=== PATIENT | female | born 1990 | race Caucasian/White ===

== ENCOUNTER 2019-11-25 15:22 | Outpatient (CLI) | payer MEDICAID, SELFPAY ==
--- NOTE | 2019-11-25 15:38 | ECG_ITS ---
Measurements Intervals [place] Rate: 69 P: 40 NC: 144 QRS: 6 QRSD: 97 T: 27 QT: 418 QTc: 449 Interpretive Statements SINUS RHYTHM INCOMPLETE RIGHT BUNDLE BRANCH BLOCK DELAYED PRECORDIAL R/S TRANSITION LOW QRS VOLTAGE IN PRECORDIAL LEADS BORDERLINE ST ABNORMALITY- INFERIOR LEADS BORDERLINE ECG Electronically Signed On 11-25-2019 16:41:27 CDT by Justice Marcos D.O.
--- NOTE | 2019-12-01 11:49 | WPDHOLTEREM ---
Holter/Event Monitor Holter/Event Monitor Date of procedure: 11/25/19 Procedure Type: 24 hour holter monitor Indications: Palpitations Conclusion: 1. 24 hour holter monitor on 11/25/19. 2. Underlying rhythm is sinus rhythm. HR range 47-120 bpm; average HR 75 bpm. 3. There are 16 premature supraventricular complexes. No supraventricular tachycardia. 4. There are 688 premature ventricular complexes and 57 ventricular trigeminy. No ventricular tachycardia. 5. No sinoatrial or atrioventricular blocks. No significant pauses greater than 2 seconds. 6. Patient reports chest pains twice which demonstrate sinus rhythm, HR range 85-92 bpm.
== END 2019-11-25 15:23 | disposition home or self-care (01) ==
LOC: ANHCARD 15:23
PROVIDERS: Visit Provider Obstetrics & Gynecology
DX: R00.2 Palpitations (principal); I49.3 Ventricular premature depolarization; R07.9 Chest pain, unspecified; I45.10 Unspecified right bundle-branch block
CPT/HCPCS: 93005; 93225; 93226

== ENCOUNTER 2020-01-01 09:24 | Outpatient (CLI) | payer BC, SELFPAY ==
[2020-01-01 09:44] LABS: Basophils Absolute Auto 0.1 K/mm3 (0.0-0.1); Basophils Percent Auto 0.6 % (0.2-1.2); Eosinophils Absolute Auto 0.2 K/mm3 (0-0.3); Eosinophils Percent Auto 1.5 % (0-4.4); Hematocrit 31.7 % (37.0-47.0); Hemoglobin 10.7 g/dL (12.0-15.0); Immature Granulocyte Absolute 0.16 K/mm3 (0.00-0.031); Immature Granulocyte Percent A 1.5 % (0-0.5); Lymphocytes Absolute Auto 2.89 K/mm3 (0.9-3.2); Lymphocytes Percent Auto 26.6 % (18.3-44.2); Mean Corpuscular HGB Conc 33.8 g/dl (32-36); Mean Corpuscular Hemoglobin 30.7 pg (26-34); Mean Corpuscular Volume 90.8 fl (80-100); Monocytes Absolute Auto 0.6 K/mm3 (0.1-0.6); Monocytes Percent Auto 5.1 % (2.6-8.5); Neutrophils Absolute Auto 7.1 K/mm3 (1.3-6.7); Neutrophils Percent Auto 64.7 % (45.5-73.1); Platelet Count Result 210 k/mm3 (150-375); Red Blood Count 3.49 M/mm3 (4.2-5.4); Red Cell Distribution Width 12.7 % (11.5-14.5); White Blood Count 10.9 K/mm3 (4.5-10.0)
[2020-01-01 09:59] LABS: Alanine Aminotransferase 13 U/L (4-35); Albumin Level 3.7 g/dL (3.5-5.1); Alkaline Phosphatase 62 U/L (38-126); Anion Gap 4 mmol/L (8-16); Aspartate Amino Transferase 24 U/L (14-36); Bilirubin,Total 0.3 mg/dL (0.2-1.3); Blood Urea Nitrogen 7 mg/dL (7-17); Calcium 8.6 mg/dL (8.4-10.2); Carbon Dioxide 26 mmol/L (22-30); Chloride 106 mmol/L (98-107); Cholesterol 241 mg/dL (0-200); Estimated Glomerular Filt Rate > 60; Glucose 86 mg/dL (65-105); HDL Direct 85 mg/dL; Magnesium 1.8 mg/dL (1.6-2.3); Sodium 136 mmol/L (137-145); Triglycerides 126 mg/dL (<150)
[2020-01-01 10:10] LABS: LDL Cholesterol Direct 140 mg/dL
== END 2020-01-01 09:25 | disposition home or self-care (01) ==
PROVIDERS: Visit Provider Internal Medicine Cardiovascular Disease
DX: R00.2 Palpitations (principal)
CPT/HCPCS: 36415; 80053; 80061; 83735; 84443; 85025

== ENCOUNTER 2020-02-09 09:04 | Outpatient (RCR) | payer BC, SELFPAY ==
[2020-02-09 10:39] LABS: Hematocrit 29.5 % (37.0-47.0); Hemoglobin 10.2 g/dL (12.0-15.0)
[2020-02-09 10:56] LABS: Glucose 1 Hour PP 50gm Dose 101 mg/dL
[2020-02-09 11:36] LABS: HIV 1/2 Ab P24 Ag Result Negative (Negative)
[2020-02-10] MEDS: RHO(D) IMMUNE GLOBULIN 300 MCG SYRINGE IM (10:00)
[2020-02-10 13:43] LABS: Rapid Plasma Reagin Non-Reactive (NonReactive)
== END 2020-05-09 23:59 | disposition home or self-care (01) ==
LOC: ANHLAB 09:04
PROVIDERS: Visit Provider Obstetrics & Gynecology
DX: Z29.13 Encounter for prophylactic Rho(D) immune globulin (principal); Z11.4 Encounter for screening for human immunodeficiency virus [HIV]; O36.0990 Maternal care for other rhesus isoimmunization, unspecified trimester, not applicable or unspecified; Z3A.00 Weeks of gestation of pregnancy not specified
CPT/HCPCS: 36415; 82947; 85014; 85018; 85461; 86592; 86703; 90384; 96372; G0432; J2790

== ENCOUNTER 2020-05-06 05:56 | Inpatient (IN) | payer OTHER, SELFPAY ==
[2020-05-06] VITALS (91 sets, daily range): BP systolic 76–136; BP diastolic 36–80; PULSE 45–157; RESP 16–18; TEMP 36–36.8; O2SAT 80–100; BMI 32.7
--- OUTSIDE RECORDS SUMMARY | 2020-05-06 06:03 | XMS_ITS | Encounter Summary ---
:1990 Author Reason for Visit OB visit Assessment and Plan Assessment Note Patient is ___weeks . Discu ssed plan. 1. Routine care Discussion Note: None recorded.Patient educational handouts: No information available. Plan of Care Reminders Provider Appointments None ? ? recorded. Lab None ? ? recorded. Referral None ? ? recorded. Procedures None ? ? recorded. Surgeries None ? ? recorded. Imaging None ? ? recorded. Medications Name Start Date ? ? sertraline 50 mg tablet ? TAKE 1 TABLET BY MOUTH EVERY DAY C.O.D. BILLER-PNV-DHA 28 mg iron-1 mg-200 mg capsule 11/09/2016 take 1 capsule by oral route every day Medications Administered None recorded. Vitals Height Weight BMI Blood Pressure 5 ft 5 in 198 lbs 32.9 kg/m2 108/68 mm[Hg] Results Lab Results None recorded. Allergies Code Code System Name Reaction Severity Onset NKDA ? ? ? Problems Name Status Onset Date Source ? Active 04/07/2020 ? Notes: Hermelinda from [employer] D ept 11/01 - States pt was previously positive for syphillis in 2015. Gingrich treated on 11/29/15, 12/06/2015,and
--- OUTSIDE RECORDS SUMMARY | 2020-05-06 06:03 | XMS_ITS | Encounter Summary ---
:1990 Author Reason for Visit OB visit OB [id number] EDC 04/30/2020 LMP 07/25/2019 Assessment and Plan Assessment Note Patient is _34__weeks . Dis cussed plan. 1. Routine care Additional precautionary measu res were taken to minimize potential exposure to the Covid-19 virus during this patien t?s visit, including available hand pipe supervisor upon arrive, temperature check and being asked a series of screening questions. All staff wore face coverings during this en counter, as well as provided additional cleaning and sanitizing of all surfaces, including countertops, pens, chairs, door handles, light switches, etc, prior to a nd following the patient?s visit.v 2. Low back pain in ? cyclobenzaprine 5 mg table t Discussion Note: None recorded.Patient educational handouts: No information available. Plan of Care Reminders Provider Appointments None ? ? recorded. Lab None ? ? recorded. Referral None ? ? recorded. Procedures None ? ? recorded. Surgeries None ? ? recorded. Imaging None ? ? recorded. Medications Name Start Date ? ? sertraline 50 mg tablet ? TAKE 1 TABLET BY MOUTH EVERY DAY AUTHORIZATION REP-PNV-DHA 28 mg iron-1 mg-200 mg capsule 11/09/2016 take 1 capsule by oral route every day
--- OUTSIDE RECORDS SUMMARY | 2020-05-06 06:03 | XMS_ITS | Encounter Summary ---
:1990 Author Reason for Visit None recorded. Assessment and Plan 1. Medical examination for suspe cted condition ? US, obstetric, limited Discussion Note: None recorded.Patient educational handouts: No information available. Plan of Care Reminders Provider Appointments None ? ? recorded. Lab None ? ? recorded. Referral None ? ? recorded. Procedures None ? ? recorded. Surgeries None ? ? recorded. Imaging US, [facility] 04/07/2020 Medications Name Start Date ? ? sertraline 50 mg tablet ? TAKE 1 TABLET BY MOUTH EVERY DAY LINER MAN-PNV-DHA 28 mg iron-1 mg-200 mg capsule 11/09/2016 take 1 capsule by oral route every day Medications Administered None recorded. Vitals None recorded. Results Lab Results None recorded. Allergies Code Code System Name Reaction Severity Onset NKDA ? ? ? Problems Name Status Onset Date Source ? Active 04/07/2020 ? Notes: Hermelinda from [employer] D ept 11/01 - States pt was previously positive for syphillis in 2015. Gingrich treated on 11/29/15, 12/06/2015,and 12/13/15. At that time she was RPR 1:4 ratio, TP-PA+. Retested in 2017 at delivery and RPR was 1:2 and No
--- OUTSIDE RECORDS SUMMARY | 2020-05-06 06:03 | XMS_ITS | Encounter Summary ---
:1990 Author Reason for Visit OB visit [id number] Assessment and Plan 1. Routine care Additional precautionary measu res were taken to minimize potential exposure to the Covid-19 virus during this patien t?s visit, including available hand ultrasound technologist upon arrive, temperature check and being asked a series of screening questions. All staff wore face coverings during this en counter, as well as provided additional cleaning and sanitizing of all surfaces, including countertops, pens, chairs, door handles, light switches, etc, prior to a nd following the patient?s visit. Discussion Note: None recorded.Patient educational handouts: No information available. Plan of Care Reminders Provider Appointments None ? ? recorded. Lab None ? ? recorded. Referral None ? ? recorded. Procedures None ? ? recorded. Surgeries None ? ? recorded. Imaging None ? ? recorded. Medications Name Start Date ? ? sertraline 50 mg tablet ? TAKE 1 TABLET BY MOUTH EVERY DAY REJECTED ITEMS CLERK-PNV-DHA 28 mg iron-1 mg-200 mg capsule 11/09/2016 take 1 capsule by oral route every day Medications Administered None recorded. Vitals Height Weight BMI Blood Pressure 5 ft 5 in 198 lbs 32.9 kg/m2 106/71 mm[Hg] Results Lab Results None
--- OUTSIDE RECORDS SUMMARY | 2020-05-06 06:03 | XMS_ITS | Encounter Summary ---
:1990 Author Reason for Visit OB visit [id number] Assessment and Plan 1. Routine care Discussion Note: None recorded.Patient [...] TAKE 1 TABLET BY MOUTH EVERY DAY BRAKE ADJUSTER-PNV-DHA 28 mg iron-1 mg-200 mg capsule 11/09/2016 take 1 capsule by oral route every day Medications Administered None recorded. Vitals Height Weight BMI Blood Pressure 5 ft 5 in 186 lbs 31 kg/m2 100/66 mm[Hg] Results Lab Results None recorded. Allergies Code Code System Name Reaction Severity Onset NKDA ? ? ? Problems Name Status Onset Date Source ? Active 04/07/2020 ? Notes: Hermelinda from [employer] D ept 11/01 - States pt was previously positive for syphillis in 2015. Gingrich treated on 11/29/15, 12/06/2015,and 12/13/15. At that time she was RPR 1:4 ratio, TP-PA+. Retested in 2017 at delivery a
--- OUTSIDE RECORDS SUMMARY | 2020-05-06 06:03 | XMS_ITS | Encounter Summary ---
:1990 Author Reason for Visit OB visit OB [id number] EDC 04/30/2020 LMP 07/25/2019 Assessment and Plan Assessment Note Patient is _39__weeks . Dis cussed plan. 1. Routine care Discussion Note: None [...] TAKE 1 TABLET BY MOUTH EVERY DAY ROD MACHINE OPERATOR-PNV-DHA 28 mg iron-1 mg-200 mg capsule 11/09/2016 take 1 capsule by oral route every day Medications Administered None recorded. Vitals Height Weight BMI Blood Pressure 5 ft 5 in 200 lbs 33.3 kg/m2 124/72 mm[Hg] Results Lab Results None recorded. Allergies Code Code System Name Reaction Severity Onset NKDA ? ? ? Problems Name Status Onset Date Source ? Active 04/07/2020 ? Notes: Hermelinda from [employer] D ept 11/01 - States pt was previou
--- OUTSIDE RECORDS SUMMARY | 2020-05-06 06:03 | XMS_ITS ---
:1990 Author Care Team Providers Name Role Phone Evelio Neal Primary Care Provider Unavailable Allergies Code Code System Name Reaction Severity Status Onset NKDA ? Medications Name Status Start Date Stop Date ? ? Bicillin L-A 2,400,000 unit/4 mL intramuscular syringe Completed 11/28/2015 04/25/2016 inject 4 milliliter by intramuscular route once cyclobenzaprine 10 mg tablet Completed ? Take 1 tablet 3 times a day by oral route. cyclobenzaprine 5 mg tablet Completed ? 03/21 Diflucan 100 mg tablet Completed 11/12/2016 0 take 2 tablet by oral route today then 1 tab for the next 10 d ays Diflucan 150 mg tablet Completed 11/09/2016 7 take 2 tablet by oral route once today then 1 tabblet for the n ext 10 days Flagyl 500 mg tablet Completed 07/06/2016 11/09/2016 take 1 tablet by oral route 2 times every day Metrogel Vaginal 0.75 % Completed 11/14/2016 02/09/20 20 insert 1 applicatorful by vaginal route every day at bedtime f or 5 nights Completed ? 02/09/2020 sertraline 50 mg tablet Active ? Not avai lable TAKE 1 TABLET BY MOUTH EVERY DAY PAINTING AND COATING WORKER-PNV-DHA 28 mg iron-1 mg-200 mg capsule Active 2016 Not available take 1 capsule by oral route every day Problems Name Status Onset Date Source ? Amenorrhea Unknown 10/27/2015 History Detection Examination Unknown 10/27/[address] Concept Unknown 10/27/2015 History Gestation Period, 13 Weeks Unknown 11/29/2015 Histo ry , Childbirth and [place] Unknown 11/29/2015 Hi
--- OUTSIDE RECORDS SUMMARY | 2020-05-06 06:03 | XMS_ITS | Encounter Summary ---
:1990 Author Reason for Visit OB visit OB [id number] EDC 04/30/2020 LMP 07/25/2019 Assessment and Plan Assessment Note Patient is _37__weeks . Dis cussed plan. 1. Routine care Additional precautionary measu res were taken to minimize potential exposure to the Covid-19 virus during this patien t?s visit, including available hand student dean upon arrive, temperature check and being asked a series of screening questions. All staff wore face coverings during this en counter, as well as provided additional cleaning and sanitizing of all surfaces, including countertops, pens, chairs, door handles, light switches, etc, prior to a nd following the patient?s visit. 2. Mixed anxiety and depressive disorder ? Zoloft 50 mg tablet Discussion Note: None recorded.Patient educational handouts: No information available. Plan of Care Reminders Provider Appointments None ? ? recorded. Lab None ? ? recorded. Referral None ? ? recorded. Procedures None ? ? recorded. Surgeries None ? ? recorded. Imaging None ? ? recorded. Medications Name Start Date ? ? sertraline 50 mg tablet ? TAKE 1 TABLET BY MOUTH EVERY DAY OPHTHALMIC TECHNOLOGIST-PNV-DHA 28 mg iron-1 mg-200 mg capsule 11/09/2016 take 1 capsule by oral route every day
--- OUTSIDE RECORDS SUMMARY | 2020-05-06 06:03 | XMS_ITS | Encounter Summary ---
:1990 Author Reason for Visit OB visit Assessment and Plan 1. Routine care Discussion [...] TAKE 1 TABLET BY MOUTH EVERY DAY QUALITY COORDINATOR-PNV-DHA 28 mg iron-1 mg-200 mg capsule 11/09/2016 take 1 capsule by oral route every day Medications Administered None recorded. Vitals Height Weight BMI Blood Pressure 5 ft 5 in 187 lbs 31.1 kg/m2 105/66 mm[Hg] Results Lab Results None recorded. Allergies Code Code System Name Reaction Severity Onset NKDA ? ? ? Problems Name Status Onset Date Source ? Active 04/07/2020 ? Notes: Hermelinda from [employer] D ept 11/01 - States pt was previously positive for syphillis in 2015. Gingrich treated on 11/29/15, 12/06/2015,and 12/13/15. At that time she was RPR 1:4 ratio, TP-PA+. Retested in 2017 at delivery and RPR was 1:2 and Nonreactive which means the esperanza
--- OUTSIDE RECORDS SUMMARY | 2020-05-06 06:03 | XMS_ITS | Encounter Summary ---
:1990 Author Reason for Visit OB visit OB [id number] EDC 04/30/2020 LMP 07/25/2019 Assessment and Plan Assessment Note Patient is _40__weeks . Dis cussed plan. 1. Routine care [...] TAKE 1 TABLET BY MOUTH EVERY DAY MEAL ATTENDANT-PNV-DHA 28 mg iron-1 mg-200 mg capsule 11/09/2016 take 1 capsule by oral route every day Medications Administered None recorded. Vitals Height Weight BMI Blood Pressure 5 ft 5 in 202 lbs 33.6 kg/m2 131/79 mm[Hg] Results Lab Results None recorded. Allergies Code Code System Name Reaction Severity Onset NKDA ? ? ? Problems Name Status Onset Date Source ? Active 04/07/2020 ? Notes: Hermelinda from [employer] D ept 11/01 - States pt was previ
[2020-05-06 06:43] LABS: Basophils Absolute Auto 0.1 K/mm3 (0.0-0.1); Basophils Percent Auto 0.4 % (0.2-1.2); Eosinophils Absolute Auto 0.2 K/mm3 (0-0.3); Eosinophils Percent Auto 1.1 % (0-4.4); Hematocrit 35.4 % (37.0-47.0); Hemoglobin 11.9 g/dL (12.0-15.0); Immature Granulocyte Absolute 0.21 K/mm3 (0.00-0.031); Immature Granulocyte Percent A 1.5 % (0-0.5); Lymphocytes Absolute Auto 4.43 K/mm3 (0.9-3.2); Lymphocytes Percent Auto 31.6 % (18.3-44.2); Mean Corpuscular HGB Conc 33.6 g/dl (32-36); Mean Corpuscular Hemoglobin 30.4 pg (26-34); Mean Corpuscular Volume 90.5 fl (80-100); Mean Platelet Volume 10.7 fl (7.4-10.4); Monocytes Absolute Auto 0.9 K/mm3 (0.1-0.6); Monocytes Percent Auto 6.2 % (2.6-8.5); Neutrophils Absolute Auto 8.3 K/mm3 (1.3-6.7); Neutrophils Percent Auto 59.2 % (45.5-73.1); Platelet Count Result 272 k/mm3 (150-375); Red Blood Count 3.91 M/mm3 (4.2-5.4); Red Cell Distribution Width 13.1 % (11.5-14.5)
[2020-05-06] MEDS: LACTATED RINGERS 1,000 ML 125 ML IV CONT ×2 (06:46→09:04)
[2020-05-06] MEDS: OXYTOCIN 30 UNITS/NS 500 ML 30 UNITS/500 ML BAG IV CONT (06:47)
--- NOTE | 2020-05-06 06:57 | LDADM ---
This patient, Tamara Gomes, was admitted to Labor/Delivery/Recovery 106 on 05/06/20 at 05:56. Plans for labor, pain management and were discussed with patient. Patient/family oriented to hospital policies and general routines including ID bracelet, bed and alarms, visiting hours, pain management, procedures, bathroom and other care routines, personal items, smoking policy, room service/diet and guest tray routines, security routines, and visiting hours. Patient/Family are encouraged to report perceived risks to care and to ask questions if they do not understand what they are told or what they should do. See OBIX for further documentation.
--- NOTE | 2020-05-06 07:56 | WPDOBADMIT ---
Obstetrics - Admit Note Admission Note: record reviewed. No pertinent additions to the history and/or any subsequent changes in the physical findings that are not consistent with the expected course of the were found. MIL for postdates, attempted AROM /-2, no fluid, pitocin started Additions to the history and/or subsequent changes in the physical findings follow. None.
--- NOTE | 2020-05-06 09:04 | P.PNAN_ITS ---
Anes - Eval Pre Procedure Date/Time: 05/06/20 09:04 Pre Op Diagnosis: Induction of Labor Patient Data Age: 30 Gender: F Height: 1.68 m Weight: 92 kg Last Vital Signs Temp 36.8 C 05/06/20 07:30 Pulse 56 L 05/06/20 08:45 BP 122/77 05/06/20 08:45 Allergies Allergy/AdvReac Type Severity Reaction Status Date / Time No Known Allergies Allergy Unknown Verified 04/05/20 12:44 Home Medications Medication Instructions Recorded Confirmed Type prenat.vits,arlette,vtl-qnzr-dygqk 1 tablet PO DAILY 12/21/19 05/06/20 History Laboratory Tests 05/06/20 05/06/20 05/06/20 06:23 06:23 06:23 WBC 14.0 K/mm3 H K/mm3 (4.5-10.0) RBC 3.91 M/mm3 L M/mm3 (4.2-5.4) Hgb 11.9 g/dL L g/dL (12.0-15.0) Hct 35.4 % L % (37.0-47.0) MCV 90.5 fl fl (80-100) MCH 30.4 pg pg (26-34) MCHC 33.6 g/dl g/dl (32-36) RDW 13.1 % % (11.5-14.5) Plt Count 272 k/mm3 k/mm3 (150-375) MPV 10.7 fl H fl (7.4-10.4) Immature Gran % (Auto) 1.5 % H % (0-0.5) Neut % (Auto) 59.2 % % (45.5-73.1) Lymph % (Auto) 31.6 % % (18.3-44.2) [place] % (Auto) 6.2 % % (2.6-8.5) Eos % (Auto) 1.1 % % (0-4.4) Baso % (Auto) 0.4 % % (0.2-1.2) Lymph # (Auto) 4.43 K/mm3 H K/mm3 (0.9-3.2) [place] # (Auto) 0.9 K/mm3 H K/mm3 (0.1-0.6) Eos # (Auto) 0.2 K/mm3 K/mm3 (0-0.3) Baso # (Auto) 0.1 K/mm3 K/mm3 (0.0-0.1) Abs Immat Gran (auto) 0.21 K/mm3 H K/mm3 (0.00-0.031) Absolute Neuts (auto) 8.3 K/mm3 H K/mm3 (1.3-6.7) Absolute Nucleated RBC 0.0 K/mm3 K/mm3 (0.0-0.012) Nucleated RBC % 0.0 % % (0.0-0.2) RPR Pending Blood Type O Negative Antibody Screen Negative Patient hx anesthesia problems: none Family hx anesthesia problems: none COUNT INCLUDES THE [facility] Family History Family History (Updated 04/05/20 @ 12:46 by Raya Chawla RN) Grandparent Brain neoplasm malignant Social History Social History Smoking status: Current every day smoker Tobacco type: cigarettes Substance use: never Spiritual care concerns: No Exam Day of Procedure 05/06/20 09:04 Patient weight: obese Heart: regular rate and rhythm Lungs: normal air movement Airway: Mallampati scale class II Neurological: alert and oriented
[2020-05-06 09:32] LABS: Rapid Plasma Reagin Non-Reactive (NonReactive)
--- NOTE | 2020-05-06 13:42 | PM.OBPRVD ---
OB - Delivery Note Procedure Delivery date: 05/06/20 Procedure: vaginal delivery Intrapartal events: None Induction method: AROM and per pitocin protocol Delivery monitor: external FHT, external uterine and internal FHT Route of delivery: Laceration Description: None Specimen: No Quantitative Blood Loss (ml): 322 Anesthesia type: Epidural Disposition: other () Baby Date of : 05/06/20 Time of : 13:31 Weeks of gestation at delivery: 41 gender: Female Weight (pounds): 9 Weight (ounces): 7 presentation: vertex position: Left Occiput Anterior Placenta delivery description: Spontaneous cord vessel description: 3 Vessels and Clamped/Cut score one minute: 9 score five minutes: 9 Narrative: mother and baby in stable condition
[2020-05-06] MEDS: OXYTOCIN 30 UNITS/NS 500 ML 30 UNITS/500 ML BAG 125 UNITS IV CONT (14:05)
[2020-05-06] MEDS: LORATADINE 10 MG TABLET PO (14:33)
[2020-05-06] MEDS: BENZOCAINE 20% AER SPR (*SP) 56 GM CAN 1 SPRAY TOPICAL (14:33)
[2020-05-06] MEDS: IBUPROFEN 600 MG TABLET PO (14:33)
[2020-05-06] MEDS: WITCH HAZEL 40 PADS 1 PAD TOPICAL (14:33)
--- NOTE | 2020-05-06 16:35 | OBPPTRN ---
Patient transferred to post room # 291 via wheelchair. Support person present. Oriented to unit, room, information board, rooming in, admission packet and security measures. Patient verbalizes understanding.
[2020-05-06] MEDS: ACETAMINOPHEN 325 MG TABLET 650 MG PO (18:35)
[2020-05-07] MEDS: IBUPROFEN 600 MG TABLET PO (04:47)
[2020-05-07 05:30] VITALS: BP 121/64; PULSE 73; RESP 16; TEMP 36.6; O2SAT 100
[2020-05-07 05:46] LABS: Hematocrit 34.6 % (37.0-47.0); Hemoglobin 11.5 g/dL (12.0-15.0)
[2020-05-07 08:15] VITALS: BP 105/63; PULSE 62; RESP 18; TEMP 36.1
--- NOTE | 2020-05-07 09:02 | WPDANLDPN2 ---
Anes-Prog Note L&D Date/Time: 05/07/20 09:02 Comfortable throughout: labor and delivery Neuraxial method: epidural Epidural/Spinal procedure site: clean & non-tender Neuro status: Neuro function grossly intact. Cardiovascular status: normal Respiratory status: normal Airway patency: baseline Mental status: baseline Post-Op hydration status: normal Vital Signs: Last Vital Signs Temp 36.6 C 05/07/20 05:30 Pulse 73 05/07/20 05:30 Resp 16 05/07/20 05:30 BP 121/64 05/07/20 05:30 Pulse Ox 100 05/07/20 05:30 Pain score (VAS): 0 I/O: Intake & Output 05/06/20 05/07/20 05/07/20 23:59 07:59 15:59 Output Total 102 Balance -102 Post-procedural complaints: none Patient feedback: Patient satisfied with anesthetic care.
--- NOTE | 2020-05-07 09:06 | PM.OBPNVD ---
OB - PN: Subj Subjective Date/time seen: 05/07/20 09:06 Patient comments: no complaints baby status: doing well [place] feeding status: exclusively breast feeding OB - PN: Obj Data Labs CBC & Chem 7: 05/07/20 05:29 Labs: Laboratory Results - last 24 hr 05/06/20 05/07/20 05/07/20 06:23 05:29 05:36 Hgb 11.5 L Hct 34.6 L RPR Non-reactive Blood Type O Negative Antibody Screen Negative Screen Negative Baby's Blood Type A pos Baby's LEANNA Negative Doses of RhIg Required 1 OB - PN A/P Plan day: 1 Plan: routine care and discharge home Time Spent With Patient Time: Total time spent is greater than 50% in coordination of care (as documented) at patient's floor/unit and/or counseling patient: Review of Systems Review of Systems: All systems reviewed & are unremarkable except as noted in HPI and below Exam Const: General: cooperative Orientation/consciousness: patient oriented x3 Limitations: no limitations Psych: Attitude: cooperative Thought process: Normal thought process present Thought content: Yes Normal thought content present Insight: Good insight present (Psych) Judgement: Good judgement present (Psych)
--- NOTE | 2020-05-07 09:09 | PM.OBDSVD ---
DS: Admitting Diagnosis Admitting Diagnosis Admitting Diagnosis: EIL OB - DS: Summary OB Procedures : None OB Procedures Intrapartum: Spontaneous Vag Delivery OB Procedures: : None Time Spent with Patient Time attestation: Total time spent providing and/or coordinating discharge services: DS: Data Data Completed and Pending Labs on day of discharge: Labs from last 24 hours 05/07/20 05/07/20 05/06/20 05:36 05:29 06:23 Hgb 11.5 L Hct 34.6 L RPR Non-reactive Blood Type O Negative Antibody Screen Negative Screen Negative Baby's Blood Type A pos Baby's LEANNA Negative Doses of RhIg Required 1 Discharge Plan Discharge Attending physician on discharge: Shar Neal Discharging Clinician: Suha Prater Patient Disposition: Home, Self-Care Activity: pelvic rest Diet: regular Patient Instructions: Antibiotic Form, How to Stop Smoking (DC) Stand Alone Forms: General Discharge Information Follow-up/Referrals: Suha Prater, CNM [Certified Nurse Regional Liaison] - 4 Weeks Discharge Medications: New ibuprofen 600 mg Tablet 600 mg PO Q6H PRN (Reason: Cramping) Qty: 30 RF: 0 Continued prenat.vits,arlette,[id number]-eolbm Tablet 1 tablet PO DAILY RF: 0 Date of admission: 05/06/20 05:56 Primary Care Provider: PHYSICIAN,COMPUTER TEACHER Admitting Provider: Shar Neal Attending physician on admission: Shar Neal Condition: Stable
[2020-05-07] MEDS: RHO(D) IMMUNE GLOBULIN 300 MCG/2 ML SYRINGE IM (13:13)
[2020-05-09 09:50] VITALS: BP 116/65; PULSE 73; RESP 16; TEMP 37; O2SAT 99
== END 2020-05-07 15:05 | disposition home or self-care (01) | DRG 560 ==
LOC: ANHLDR 06:03 → ANHOB2 16:50
PROVIDERS: Advanced Practice Midwife; Admitting Provider Obstetrics & Gynecology; Visit Provider Obstetrics & Gynecology
DX: O48.0 Post-term pregnancy (principal); Z37.0 Single live birth; Z3A.40 40 weeks gestation of pregnancy; O99.214 Obesity complicating childbirth; E66.9 Obesity, unspecified
CPT/HCPCS: 36415; 85014; 85018; 85025; 85461; 86592; 86850; 86900; 86901; 90384; A9270; J2590; J2790; J2795; J7120

== ENCOUNTER 2021-03-29 17:44 | Outpatient (CLI) | payer OTHER, SELFPAY ==
[2021-03-29 18:04] LABS: Cholesterol 216 mg/dL (0-200); HDL Direct 75 mg/dL; Triglycerides 122 mg/dL (<150)
[2021-03-29 18:15] LABS: LDL Cholesterol Direct 96 mg/dL
== END 2021-03-29 17:45 | disposition home or self-care (01) ==
LOC: ANHLAB 17:47
PROVIDERS: Visit Provider Internal Medicine Cardiovascular Disease
DX: E78.5 Hyperlipidemia, unspecified (principal)
CPT/HCPCS: 36415; 80061

== ENCOUNTER 2021-04-07 14:30 | Outpatient (CLI) | payer OTHER, SELFPAY ==
--- NOTE | ~2021-04-07 | MMUS_ITS ---
EXAMINATION: MM diagnostic libra RT w esteban, US breast RT complete HISTORY: Palpable right breast lump for one year TECHNIQUE: Additional 3-D tomosynthesis images of the right breast were performed and synthetic 2-D i mages were generated. CAD analysis was submitted and interpreted. High resolution right complete bal[address] st ultrasound was performed. COMPARISON: None BREAST PARENCHYMAL COMPOSITION: The breasts are extremely dense, which lowers the sensitivity of mamm ography. FINDINGS: MAMMOGRAPHIC FINDINGS: There is a superficially located mass in the upper outer quadrant of the right breast posteriorly cor responding to the palpable abnormality. There are no suspicious calcifications or architectural disto rtion. ULTRASOUND: Complete US of all 4 quadrants of the the right breast and retroareolar region was reviewed. At 10:00 , 10 cm from the nipple, there is an oval hypoechoic mass with heterogeneous internal echotexture guilherme suring 8 x 7 x 6 mm. No significant posterior attenuation or internal vascularity. IMPRESSION: 1. Right breast mass at 10:00, 10 cm from the nipple measuring 8 mm, corresponding to the palpable ab normality. This mass is likely benign. 2. Recommend 6 month follow-up right breast ultrasound BI-RADS category 3, probably benign findings. Reviewed, dictated and finalized at location A. ING AND HANGING IMPRESSION: 1. Right breast mass at 10:00, 10 cm from the nipple measuring 8 mm, correspond ing to the palpable abnormality. This mass is likely benign. 2. Recommend 6 month follow-up right breast ultrasound BI-RADS category 3, probably benign findings.
== END 2021-04-07 14:31 | disposition home or self-care (01) ==
LOC: ANHIMG 14:32
PROVIDERS: Visit Provider Advanced Practice Midwife
DX: N63.10 Unspecified lump in the right breast, unspecified quadrant (principal)
CPT/HCPCS: 76641; 77061; 77065; G0279

== ENCOUNTER 2022-05-23 08:03 | Outpatient (CLI) | payer OTHER, SELFPAY ==
--- NOTE | 2022-06-04 16:56 | WPDHOMESLEEP ---
Sleep Study - Home Unattended Date of Study: 05/23/22 Ordering Provider: Justice Marcos DO Interpreting Provider: Marva Mccarthy DO Home Sleep Study Type: Watch PAT Height: 1.68 m Weight: 80.739 kg Body Mass Index: 28.7 Neck Circumference (inches): 13 [place]: 11 Reason for Sleep Study Snoring, unrefreshing sleep Sleep History The patient is a 32-year-old female with anxiety, palpitations and current tobacco use that had a sleep study ordered for evaluation of sleep apnea. The patient denies awakening from sleep short of breath. She rarely awakens at night with heartburn, belching or cough. She occasionally snores but it is never loud enough that others complain. She occasionally has trouble sleeping when she has a cold. She denies waking up gasping for air throughout the night. She denies having breathing problems at night observed by herself or others. She occasionally sweats excessively at night. She occasionally has heart palpitations or irregular heartbeats during the night. He rarely falls asleep during the day but never while driving. She denies sleep paralysis and cataplexy. She rarely has trouble at school or work due to sleepiness. She rarely experiences vivid dreamlike scenes upon awakening or falling asleep. She denies feeling afraid of going to sleep. She denies having nightmares. She occasionally remembers her dreams. She denies having thoughts racing through her mind. She rarely feels sad or depressed. She constantly has anxiety. She frequently has muscular tension. She denies noticing parts of her body jerk. She rarely kicks during the night. She denies having crawling and aching feelings in her legs but occasionally has leg pain during the night. She denies grinding her teeth during sleep. She rarely awakens with a morning jaw pain. She denies being bothered by pain during the day and denies being awakened by pain during the night. She occasionally wakes up feeling stiff in the morning. She occasionally wakes up with sore or achy muscles. She frequently wakes up with pain in the neck, spine or other joints. She goes to bed at 10:00 p.m. on weekdays but her bedtime is variable on the weekends. The length of time for her to fall asleep is variable. She wakes up 1-2 times throughout the night to urinate, let the dog out and check on her kids. She is able to fall back asleep within 10-20 minutes. She wakes up at 6:30 a.m. on weekdays but does not have a set bedtime on the weekend. She typically gets 6-7 hours of sleep per night. She will stay in bed for 5-10 minutes after waking up in the morning. She currently lives with her and 2 younger children. She will consume caffeinated beverages within 2 hours of bedtime. She does not engage in physical exercise before bedtime. She will watch television before falling asleep. She will take naps in the afternoon or the evening but they are not refreshing. She consumes 2-3 caffeinated beverages per day. She currently smokes 1/2 pack of cigarettes per day. She denies alcohol and recreational drug use. [facility] Family History Family History Grandparent Brain neoplasm malignant Social History Social History Smoking status: Current every day smoker Tobacco type: cigarettes Substance use: never Spiritual care concerns: No Medications Home Medications Medication Instructions Recorded Confirmed Type sertraline 100 mg tablet 100 mg PO DAILY 09/21/20 04/23/22 History Sleep Procedure The sleep study was completed using [employer] a technically adequate device with seven channels: peripheral arterial tone, actigraphy, body position, snore, respiratory movement, pulse oximetry, sleep staging, and heart rate. Prior to using the device, the patient received verbal and written instructions for its application and was provided
[2022-06-04 17:04] VITALS: BMI 28.7
== END 2022-05-24 10:20 | disposition home or self-care (01) ==
PROVIDERS: PCP Family Medicine; Visit Provider Internal Medicine Cardiovascular Disease
DX: G47.33 Obstructive sleep apnea (adult) (pediatric) (principal); G47.10 Hypersomnia, unspecified; F17.210 Nicotine dependence, cigarettes, uncomplicated
CPT/HCPCS: 95800

== ENCOUNTER 2023-04-22 09:41 | Outpatient (CLI) | payer OTHER, SELFPAY ==
[2023-04-22 11:16] LABS: Basophils Percent Auto 0.4 % (0.2-1.2); Eosinophils Absolute Auto 0.1 K/mm3 (0-0.3); Eosinophils Percent Auto 1.6 % (0-4.4); Hematocrit 44.2 % (37.0-47.0); Hemoglobin 14.2 g/dL (12.0-15.0); Immature Granulocyte Absolute 0.02 K/mm3 (0.00-0.031); Immature Granulocyte Percent A 0.4 % (0-0.5); Lymphocytes Percent Auto 52.8 % (18.3-44.2); Mean Corpuscular HGB Conc 32.1 g/dl (32-36); Mean Corpuscular Hemoglobin 28.8 pg (26-34); Mean Corpuscular Volume 89.7 fl (80-100); Mean Platelet Volume 11.3 fl (7.4-10.4); Monocytes Absolute Auto 0.5 K/mm3 (0.1-0.6); Monocytes Percent Auto 8.8 % (2.6-8.5); Neutrophils Absolute Auto 1.8 K/mm3 (1.3-6.7); Platelet Count Result 179 k/mm3 (150-375); Red Blood Count 4.93 M/mm3 (4.2-5.4); Red Cell Distribution Width 12.2 % (11.5-14.5); White Blood Count 5.1 K/mm3 (4.5-10.0)
[2023-04-22 11:29] LABS: Alanine Aminotransferase 25 U/L (6-35); Albumin Level 4.5 g/dL (3.5-5.1); Alkaline Phosphatase 55 U/L (38-126); Anion Gap 7 mmol/L (8-16); Aspartate Amino Transferase 35 U/L (14-36); Bilirubin,Total 0.6 mg/dL (0.2-1.3); Blood Urea Nitrogen 11 mg/dL (7-17); Carbon Dioxide 29 mmol/L (22-30); Chloride 101 mmol/L (98-107); Cholesterol 173 mg/dL (0-200); Estimated Glomerular Filt Rate > 60; Glucose 87 mg/dL (65-110); HDL Direct 56 mg/dL; Potassium 3.9 mmol/L (3.4-5.0); Sodium 137 mmol/L (137-145); Triglycerides 86 mg/dL (<150)
[2023-04-22 11:40] LABS: LDL Cholesterol Direct 87 mg/dL
== END 2023-04-22 09:42 | disposition home or self-care (01) ==
LOC: ANHLAB 09:42
PROVIDERS: PCP Family Medicine; Visit Provider Internal Medicine Cardiovascular Disease
DX: E78.5 Hyperlipidemia, unspecified (principal)
CPT/HCPCS: 36415; 80053; 80061; 85025; 97110; 97161

== ENCOUNTER 2023-07-17 10:00 | Outpatient (RCR) | payer OTHER, SELFPAY ==
--- NOTE | 2023-04-22 16:14 | OPREHPOC ---
Outpatient Therapy Plan of Care This is a Multidisciplinary Plan of Care that may contain components documented by all disciplines (PT, OT, and ST.) PT Problem 1 PT Problem #1 Knowledge Deficit PT Goal 1 Goal 1. Patient will perform independent HEP Target Visit 4 PT Problem 2 PT Problem #2 Pain PT Goal 1 Goal 1. Pt will report no pain with pelvic exam or intercourse Target Visit 6 PT Problem 3 PT Problem #3 Impaired Strength PT Goal 1 Goal 1. Improve pelvic floor strength to 3/5 to decrease incontinence 2. Improve pelvic floor endurance to 10 seconds to decrease incontinence Target Visit 6 PT Problem 4 PT Problem #4 Impaired Functional ADLs PT Goal 1 Goal 1. Patient will report no more than 1 instance of incontinence per month 2. Patient will hold urge to void at least 30 minutes Target Visit 6
--- NOTE | 2023-04-22 16:14 | PTOPEVAL1 ---
Assessment and note entered by Shiela Briggs DPT Evaluation Information Assessment Status Evaluation Subjective Information Pt reports she has had 2 babies and iss now reporting pain with intercourse and pain with her last pelvic exam. Notices stress incontinence. Voids less than 10 times a day, and none at night. Incontinence multiple times a week and is a few drops. Denies pain with urination. Can hold urge about 5 minutes. BM 2 times a day on average, denies pain other than hemorrhoids. Pelvic pain 9/ 10 at the highest and lowest 0/10. Has noticed the pain and incontinence over the last 4 months, insidious onset. First baby in 2016, second in 2020 both vaginal deliveries. Tearing and hemorrhage with the first delivery. No other NURSE PRACTITIONER HOME ASSESSMENTS or b/b issues. Patient goal: figure out my pelvic floor, not leak urine Returns to referring MD in 2 months. Reported Pain Level Pain Score 0: Self Report Assessment PT Clinical Summary The patient is presenting to skilled therapy with a several month history of pelvic pain and stress incontinence. She presents with decreased pelvic floor strength and endurance as well as increased pelvic muscle tone and difficulty relaxing. These impairments are contributing to her pain and incontinence and she will highly benefit from therapy to reduce pain and incontinence and return to full function. Plan of Care Interventions Electrical Stimulation,Hot Pack/Cold Pack,Manual Therapy,Neuro Re-education,Patient/Caregiver Education,Therapeutic Activities,Therapeutic Exercise PT Services Indicated Yes Treatment Frequency and 1 time a week for 6 weeks Duration These treatments will address the objective and functional deficits as defined above. The patient will be advanced safely and appropriately in order for the patient to progress towards his/her prior level of function. Additional exercises will be introduced and as well as a comprehensive home exercise program upon discharge, if needed, ?to ensure carryover of functional gains achieved in the clinic. This treatment plan has been reviewed and agreement upon by the patient.
--- NOTE | 2023-05-22 09:24 | PCPTNOTE ---
Patient got time wrong for appointment on 05/22/23- appointment was cancelled.
--- NOTE | 2023-06-04 13:40 | OPREHPOC ---
Outpatient Therapy Plan of Care This is a Multidisciplinary Plan of Care that may contain components documented by all disciplines (PT, OT, and ST.) PT Problem 1 PT Problem #1 Knowledge Deficit PT Goal 1 Goal 1. Patient will perform independent HEP Target Visit 4 Progress Met PT Problem 2 PT Problem #2 Pain PT Goal 1 Goal 1. Pt will report no pain with pelvic exam or intercourse Target Visit 10 Progress Partially Met Comment 1. Improved to 4/10 highest PT Problem 3 PT Problem #3 Impaired Strength PT Goal 1 Goal 1. Improve pelvic floor strength to 3/5 to decrease incontinence 2. Improve pelvic floor endurance to 10 seconds to decrease incontinence Target Visit 6 Progress Met PT Problem 4 PT Problem #4 Impaired Functional ADLs PT Goal 1 Goal 1. Patient will report no more than 1 instance of incontinence per month 2. Patient will hold urge to void at least 30 minutes Target Visit 10 Progress Partially Met
--- NOTE | 2023-06-04 13:40 | PTOPPROG ---
Assessment and note entered by Shiela Briggs DPT Evaluation Information Assessment Status Progress Subjective Information Overall has been feeling improvements with therapy , less pain with intercourse and less volume of incontinence in the last few weeks. Highest pain in last 2 weeks 4/10 and lowest 0/10. Incontinence 2 times in the last two weeks. Can hold urge to void 15-20. Assessment PT Clinical Summary The patient has made good progress in therapy and reports significantly decreased pelvic pain to 4/ 10 highest. She also reports decreased incontinence and urgency. She demonstrates improved pelvic floor strength and endurance and improved hip strength. Due to her progress but continued pain, plan to continue therapy to further address pain and incontinence in order to return to full function. Plan of Care Interventions Electrical Stimulation,Hot Pack/Cold Pack,Manual Therapy,Neuro Re-education,Patient/Caregiver Education,Therapeutic Activities,Therapeutic Exercise PT Services Indicated Yes Treatment Frequency and 1 visit every other week x 3 visits Duration These treatments will address the objective and functional deficits as defined above. The patient will be advanced safely and appropriately in order for the patient to progress towards his/her prior level of function. Additional exercises will be introduced and as well as a comprehensive home exercise program upon discharge, if needed, ?to ensure carryover of functional gains achieved in the clinic. This treatment plan has been reviewed and agreement upon by the patient.
--- NOTE | 2023-07-17 10:17 | OPREHPOC ---
Outpatient Therapy Plan of Care This is a Multidisciplinary Plan of Care that may contain components documented by all disciplines (PT, OT, and ST.) PT Problem 1 PT Problem #1 Knowledge Deficit PT Goal 1 Goal 1. Patient will perform independent HEP Target Visit 4 Progress Met PT Problem 2 PT Problem #2 Pain PT Goal 1 Goal 1. Pt will report no pain with pelvic exam or intercourse Target Visit 10 Progress Partially Met Comment 1. Improved to 2-3/10 highest PT Problem 3 PT Problem #3 Impaired Strength PT Goal 1 Goal 1. Improve pelvic floor strength to 3/5 to decrease incontinence 2. Improve pelvic floor endurance to 10 seconds to decrease incontinence Target Visit 6 Progress Met PT Problem 4 PT Problem #4 Impaired Functional ADLs PT Goal 1 Goal 1. Patient will report no more than 1 instance of incontinence per month 2. Patient will hold urge to void at least 30 minutes Target Visit 10 Progress Partially Met Comment 1. met 2. 20-25
--- NOTE | 2023-07-17 10:17 | PTOPDC ---
Assessment and note entered by Shiela Briggs DPT Evaluation Information Assessment Status Discharge Subjective Information No pelvic pain over the last week, 1 instance of incontinence in the last week after needing to hold a long period of time. That was the only time of incontinence for several weeks. Can hold urge 20-25 minutes. Reported Pain Level Pain Score 0: Self Report Assessment PT Clinical Summary The patient has continued to make good progress in therapy and reports only 1 instance of incontinence in the past several weeks and no pelvic pain in the last week. She demonstrates overall improved core and pelvic floor strength and improved muscle tone and decreased pain with palpation. Due to her progress, plan to discharge at this time. She has been educated to continue her HEP and to follow up with MD and/or PT as needed. Plan of Care PT Services Indicated No
== END 2023-07-17 11:05 | disposition home or self-care (01) ==
LOC: ANHGOSHPT 10:00
PROVIDERS: PCP Family Medicine
DX: Z39.2 Encounter for routine postpartum follow-up (principal)
CPT/HCPCS: 97110; 97112; 97140; 97161; 97530

== ENCOUNTER 2023-07-22 08:22 | Outpatient (CLI) | payer OTHER, SELFPAY ==
--- NOTE | 2023-08-12 11:36 | WPDSLEEPSTUD ---
Sleep Study Date of Study: 07/22/23 Ordering Provider: BRITT Longoria Interpreting Physician: Pamela Montesinos MD Sleep Study Type: Polysomnogram Height: 1.68 m Weight: 77.111 kg Body Mass Index: 27.4 Neck Circumference (inches): 13 [place]: 11 Reason for Sleep Study Snoring, unrefreshing sleep * 05/23/22 - HST - Mild NIKI, AHI 6.5 with desaturation to 82%. APAP [id number] recommended however the patient did not proceed with treatment at that time Sleep History Tamara Gomes is a 32-year-old female with anxiety, palpitations and current tobacco use. She had a home sleep test 05/23/2022 for snoring and non-restorative sleep. She had mild obstructive sleep apnea with an apnea hypopnea index of 6.5 with desaturation to 82%. She did not pursue treatment at that time and now returns for additional evaluation. She does not awaken from sleep short of breath. She rarely awakens at night with heartburn, belching or coughing. She occasionally snores but it is never loud enough that others complain. She occasionally has trouble sleeping when she has a cold. She denies waking up gasping for air during the night. She denies having breathing problems at night observed by others. She occasionally sweats excessively at night. She occasionally has heart palpitations or irregular heartbeats during the night. She rarely falls asleep during the day, however never while driving. She denies feeling paralyzed on falling asleep or upon waking. She rarely has daytime difficulties due to excessive daytime sleepiness. She rarely experiences vivid dreamlike scenes upon awakening or falling asleep. She denies feeling afraid to going to sleep. She denies having nightmares. She occasionally remembers her dreams. She denies having thoughts racing through her mind. She rarely feels sad or depressed. She constantly has anxiety. She frequently has muscular tension. She denies noticing parts of her body jerk. She rarely kicks during the night. She denies having crawling and aching feelings in her legs but occasionally has leg pain during the night. She denies grinding her teeth during sleep. She rarely awakens with a morning jaw pain. She denies being bothered by pain during the day and denies being awakened by pain during the night. She occasionally wakes up feeling stiff in the morning. She occasionally wakes up with sore or achy muscles. She frequently wakes up with pain in the neck, spine or other joints. Normal bedtime is 10:00 p.m. on weekdays but her bedtime is variable on the weekends. The length of time for her to fall asleep is variable. She wakes up 1-2 times during the night to urinate, let the dog out and check on her kids. She is able to return to sleep within 10-20 minutes. She wakes up at 6:30 a.m. on weekdays but does not have a set bedtime on the weekend. She typically gets 6-7 hours of sleep per night. She stays in bed for 5-10 minutes after waking up in the morning. She currently lives with her and 2 children. She consumes caffeinated beverages within 2 hours of bedtime. She takes naps in the afternoon or the evening however a short nap is not refreshing. Habits: Tobacco: smokes 1/2 pack of cigarettes per day. Caffeine: 2-3 per day Alcohol. none Recreational substances: none PMFSH Past Medical History Medical History (Updated 08/12/23 @ 12:17 by Pamela Montesinos MD) Anxiety Dyslipidemia NIKI (obstructive sleep apnea) Home sleep test 05/23/2022, mild, AHI 6.5, 82% Palpitations Family History Family History Grandparent Brain neoplasm malignant Social History Social History (Updated 06/26/23 @ 08:30 by Estela Coburn MA) Smoking packs per day: 0.50 Smoking cigarettes per day: 10.0 Smoking status: Current every day smoker Tobacco type: cigarettes Substance use: never Spiritual care concerns: No Med[facility]
[2023-08-12 12:18] VITALS: BMI 27.4
== END 2023-07-23 06:51 | disposition home or self-care (01) ==
LOC: ANHCSM 08:24
PROVIDERS: PCP Emergency Medicine; Visit Provider Physician Assistant
DX: G47.33 Obstructive sleep apnea (adult) (pediatric) (principal); R06.83 Snoring
CPT/HCPCS: 95810